=== PATIENT | male | born 1990 | race Two or more races ===

== ENCOUNTER 2019-04-25 16:34 | Inpatient (IN) | payer OTHER ==
[~2019-04-25] VITALS: Ht 180.3 cm; Wt 60.4 kg
--- NOTE | 2019-04-25 16:50 | NUR ---
PT SENT FROM [facility] VIA P/V AFTER PT WAS ABOUT TO BE ADMITTED BUT NOTIFIED THAT INSURANCE WAS NOT ACCEPTED AT [facility]. PT C/O ABD PAIN, N/V SINCE 5 AM TODAY WITH LABS INDICATING AT [facility]. TX WITH 1L NS/ZOFRAN/INSULIN BOLUS/INSULIN GTT. ARRIVES POV IN CARE OF PARENTS. APPEARS WELL, BREATHING UNLABORED, SKIN WARM/DRY. ONLY COMPLAINING OF NAUSEA FSBS 142, VSS PROVIDER TO BEDSIDE- MEDICATE GI UPSET/RE-ASSESS
[2019-04-25] MEDS ORDERED: HYDROcodone/APAP 5/325 TABLET PO ONE (17:00)
[2019-04-25] MEDS ORDERED: ONDANSETRON ODT 4 MG PO ONE (17:00)
[2019-04-25] MEDS ORDERED: MAALOX/HYOSCYAMINE/LIDOCAINE 45 ML BTL ONE (17:10)
[2019-04-25] MEDS ORDERED: ONDANSETRON ODT 4 MG ONE (17:10)
[2019-04-25] MEDS ORDERED: FAMOTIDINE 20 MG/2 ML ONE (17:11)
--- NOTE | 2019-04-25 17:30 | NUR ---
RIGHT FOREARM PIV PLACED FROM WHICH LABS INCLUDING 1 SET OF BLOOD CULTURES OBTAINED PATIENT THEN MEDICATED PER EMAR
[2019-04-25] MEDS ORDERED: PLEASE ENTER ALLERGIES MC SCH (18:00)
[2019-04-25] MEDS ORDERED: FAMOTIDINE 20 MG/2 ML IVPush ONE (18:00)
[2019-04-25] MEDS ORDERED: MAALOX/HYOSCYAMINE/LIDOCAINE 45 ML BTL PO ONE (18:00)
--- NOTE | 2019-04-25 18:07 | NUR ---
PATIENT REPORT "UPSET STOMACH COMPLETELY IMPROVED." VITALS REMAIN STABLE REVIEWED POC WITH PROVIDER: alex. PATIENT THEN UPDATED ON ESTIMATED POC
[2019-04-25] MEDS ORDERED: SODIUM CHLORIDE 0.9% 1,000 ML IV ONE (18:30)
--- NOTE | 2019-04-25 18:35 | NUR ---
WITH REASSESSMENT PATIENT REPORTS UPSET STOMACH REMAINS IMPROVED HOWEVER STILL REPORTING HEADACHE, GENERALIZED ACHES CLARIFIED POC/PROVIDER PLAN FOR ORDERS FOR LABS (SPECIMEN IN LAB AWAITING ORDERS TO RUN NEEDED)- PROVIDER CONSIDERING PLAN VITALS REMAIN UNCHANGED IVF ORDERS OBTAINED-NS ADMINISTERED AT 150ML/HR
[2019-04-25] MEDS ORDERED: MORPHINE SULFATE 4 MG/ML, 1ML ONE (19:04)
--- NOTE | 2019-04-25 19:07 | NUR ---
DR. MAYER AT BEDSIDE TO ADMIT VERBAL ORDERS RECEIVED FOE 2MG MORHINE FOR ACHES-MEDICATED PER EMAR
[2019-04-25] MEDS ORDERED: INSU100C5 SQ-INSULIN (19:10)
[2019-04-25] MEDS ORDERED: INSU100V8 SQ (19:10)
[2019-04-25 19:16] LABS: ANION GAP 14 mmol/L (5-15); CHLORIDE 109 mmol/L (98-107); CREATININE 0.83 mg/dL (0.7-1.3)
[2019-04-25] MEDS ORDERED: morphine SULFATE 10 MG/ML, 1ML IVPush ONE (19:30)
--- NOTE | 2019-04-25 19:36 | NUR ---
PATIENT TOLERATING STRING CHEESE/WATER. HOSPITALIST DECIDING ICU VS. FLOOR
[2019-04-25] MEDS ORDERED: D5%-0.45% NACL 1,000 ML IV SCH (19:38)
[2019-04-25] MEDS ORDERED: REGULAR INSULIN 62.5 UNITS in SODIUM CHLORIDE 0.9% 249.375 ML IV PRN ×2 (19:38→20:00)
[2019-04-25] MEDS ORDERED: LINA5TAB PO (19:40)
--- NOTE | 2019-04-25 19:51 | NUR ---
AWAITING HOSPITALIST CLARIFICATION PRIOR TO STARTING INSULIN/D5. ORDERS ABNORMAL. WILL ATTEMPT TO CONTACT PROVIDER
[2019-04-25] MEDS: ENOXAPARIN 40 MG/0.4 ML SQ SCH (20:00)
[2019-04-25] MEDS ORDERED: PROMETHAZINE 25 MG/ML, 1ML IM PRN (20:00)
[2019-04-25] MEDS ORDERED: D5%-0.45NACL+KCL 20MEQ 1,000 ML IV SCH (20:00)
[2019-04-25] MEDS ORDERED: DEXTROSE 4 GM TAB.CHEW PO PRN (20:00)
[2019-04-25] MEDS ORDERED: morphine SULFATE 10 MG/ML, 1ML IVPush PRN (20:00)
[2019-04-25] MEDS ORDERED: DEXTROSE 50%, 50ML SYRINGE IVPush PRN (20:00)
[2019-04-25] MEDS ORDERED: ONDANSETRON 2MG/ML, 2ML IVPush PRN (20:00)
[2019-04-25] MEDS ORDERED: GLUCAGON 1 MG IM PRN (20:00)
[2019-04-25] MEDS ORDERED: ACETAMINOPHEN 325 MG TABLET PO PRN (20:00)
[2019-04-25] MEDS ORDERED: FAMOTIDINE 20 MG TABLET PO SCH (21:00)
[2019-04-25 21:32] LABS: ANION GAP 16 mmol/L (5-15); CALCIUM 7.4 mg/dL (8.5-10.1); CHLORIDE 110 mmol/L (98-107); CREATININE 0.69 mg/dL (0.7-1.3)
[2019-04-25 21:52] VITALS: BP 102/47
[2019-04-25] MEDS: SODIUM CHLORIDE FLUSH 10ML SYR IVF SCH (21:52)
[2019-04-25 22:00] LABS: HEMOGLOBIN A1C 11.3 % (4.2-6.3)
[2019-04-25 22:23] LABS: ACETONE, SERUM Large (80mg/dL) mg/dL (Negative)
[2019-04-25 23:26] LABS: ANION GAP 12 mmol/L (5-15); CALCIUM 7.3 mg/dL (8.5-10.1); CHLORIDE 108 mmol/L (98-107); CREATININE 0.83 mg/dL (0.7-1.3)
[2019-04-26 01:36] LABS: ANION GAP 9 mmol/L (5-15); CALCIUM 7.4 mg/dL (8.5-10.1); CHLORIDE 109 mmol/L (98-107); CREATININE 0.87 mg/dL (0.7-1.3)
[2019-04-26] MEDS: INSULIN GLARGINE 100 UNITS/ML, PEN SQ-INSULIN SCH ×2 (07:42→20:53)
[2019-04-26] MEDS: INSULIN LISPRO 100 UNITS/ML, PEN SQ-INSULIN SCH ×4 (07:43→20:53)
[2019-04-26] MEDS: SODIUM CHLORIDE FLUSH 10ML SYR IVF SCH ×2 (07:49→20:55)
[2019-04-26 18:53] VITALS: BP 111/71
[2019-04-26] MEDS ORDERED: D5%-0.45% NACL 1,000 ML IV SCH ×2 (19:38)
[2019-04-26] MEDS: ENOXAPARIN 40 MG/0.4 ML SQ SCH (20:00)
[2019-04-27 00:57] VITALS: BP 109/69
[2019-04-27 04:42] LABS: ANION GAP 8 mmol/L (5-15); CALCIUM 8.5 mg/dL (8.5-10.1); CHLORIDE 106 mmol/L (98-107); CREATININE 0.78 mg/dL (0.7-1.3)
[2019-04-27 04:45] LABS: BASOPHILS # (AUTO) 0.04 x10^3/uL (0-0.1); BASOPHILS % (AUTO) 1 % (0-1); EOSINOPHILS # (AUTO) 0.18 x10^3/uL (0-0.4); EOSINOPHILS % (AUTO) 3 % (1-7); LYMPHOCYTES # (AUTO) 1.85 x10^3/uL (1-3.4); LYMPHOCYTES % (AUTO) 33 % (22-44); MD NO; MEAN CORPUSCULAR HGB CONC 33.3 g/dL (33.2-36.2); MEAN CORPUSCULAR VOLUME 96.3 fL (81-97); MEAN PLATELET VOLUME 7.8 fL (7.4-10.4); MONOCYTES # (AUTO) 0.46 x10^3/uL (0.2-0.8); MONOCYTES % (AUTO) 8 % (2-9); NEUTROPHILS # (AUTO) 3.05 x10^3/uL (1.8-6.8); NEUTROPHILS % (AUTO) 55 % (42-75); PLATELET COUNT 273 x10^3/uL (130-400); RED BLOOD COUNT 4.81 x10^6/uL (4.38-5.82)
[2019-04-27] MEDS: INSULIN LISPRO 100 UNITS/ML, PEN SQ-INSULIN SCH ×2 (07:00→11:04)
[2019-04-27 07:09] VITALS: BP 107/72
[2019-04-27] MEDS: INSULIN GLARGINE 100 UNITS/ML, PEN SQ-INSULIN SCH (07:29)
[2019-04-27] MEDS: SODIUM CHLORIDE FLUSH 10ML SYR IVF SCH (09:00)
== END 2019-04-27 13:25 | disposition home or self-care (01) | DRG 639 ==
LOC: ED 19:37 → CCU 20:21 → 3NW 04-26 10:05 → DCLOUNGE 04-27 13:17
PROVIDERS: ADMIT Family Medicine; ATTEND Family Medicine
DX: E10.10 Type 1 diabetes mellitus with ketoacidosis without coma (principal); F12.10 Cannabis abuse, uncomplicated; Z71.6 Tobacco abuse counseling; Z79.4 Long term (current) use of insulin; Z72.0 Tobacco use; Z86.39 Personal history of other endocrine, nutritional and metabolic disease
CPT/HCPCS: 36415; 99285; J3490; 80048; 82010; 82947; 82962; 83036; 83735; 84100; 85025; 87081; 96374; 96375; G0378; J1815; Q0162; J2270; J7030; J7050

== ENCOUNTER 2020-01-13 05:56 | Inpatient (IN) | payer OTHER ==
[~2020-01-13] VITALS: Ht 180.3 cm; Wt 59.6 kg
[~2020-01-13 05:56] MED LIST: INSU100C5 SQ-INSULIN; INSU100V8 SQ; LINA5TAB PO
[2020-01-13] MEDS ORDERED: SODIUM CHLORIDE FLUSH 10ML SYR IVF ONE (06:30)
[2020-01-13] MEDS ORDERED: SODIUM CHLORIDE 0.9% 1,000ML IVBOLUS ONE (06:30)
[2020-01-13] MEDS ORDERED: ONDANSETRON 2MG/ML, 2ML IVPush ONE (06:30)
[2020-01-13] MEDS ORDERED: ONDANSETRON 2MG/ML, 2ML ONE (06:32)
--- NOTE | 2020-01-13 06:39 | NUR ---
PT HERE FOR C/O N/V/D AND HIGH FSBS 400. 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 VSS.
[2020-01-13 06:43] LABS: MEAN CORPUSCULAR HEMOGLOBIN 31.3 pg (27.5-34.5); MEAN CORPUSCULAR HGB CONC 33.1 g/dL (33.2-36.2); MEAN CORPUSCULAR VOLUME 94.5 fL (81-97); MEAN PLATELET VOLUME 8.5 fL (7.4-10.4); PLATELET COUNT 297 x10^3/uL (130-400); RED BLOOD COUNT 5.41 x10^6/uL (4.38-5.82); RED CELL DISTRIBUTION WIDTH 13.2 % (9.4-14.8)
[2020-01-13] MEDS ORDERED: MORPHINE SULFATE 4 MG/ML, 1ML ONE (06:49)
--- NOTE | 2020-01-13 06:49 | NUR ---
PT REPORTS ABD PAIN, UPDATED ERP.
[2020-01-13 06:55] LABS: ALANINE AMINOTRANSFERASE 44 U/L (12-78); ALBUMIN 4.6 g/dL (3.4-5.0); ANION GAP 17 mmol/L (5-15); CALCIUM 10.4 mg/dL (8.5-10.1); CHLORIDE 101 mmol/L (98-107); CREATININE 1.53 mg/dL (0.7-1.3)
[2020-01-13 06:57] LABS: ALKALINE PHOSPHATASE 107 U/L (45-117); TOTAL PROTEIN 9.3 g/dL (6.4-8.2)
[2020-01-13] MEDS ORDERED: MORPHINE SULFATE 4 MG/ML, 1ML IVPush ONE (07:00)
--- NOTE | 2020-01-13 07:03 | NUR ---
REPORT GIVEN TO ROSALIA SAUCEDA.
--- NOTE | 2020-01-13 07:04 | NUR ---
RECEIVED REPORT FROM KOMAL RED. PT SITTING IN BED, NO SIGNS OF DISTRESS, PT EDUCATED AGAIN ABOUT UA, PT ATTEMPTING TO URINATE.
--- NOTE | 2020-01-13 07:04 | NUR ---
LATE NOTE: THIS TECH TRIAGED/ROOMED PT & DID EKG
[2020-01-13 07:16] LABS: BASOPHILS # (AUTO) 0.01 x10^3/uL (0-0.1); BASOPHILS % (AUTO) 0 % (0-1); EOSINOPHILS % (AUTO) 0 % (1-7); LYMPHOCYTES # (AUTO) 1.11 x10^3/uL (1-3.4); LYMPHOCYTES % (AUTO) 6 % (22-44); MD SCAN; MONOCYTES # (AUTO) 0.98 x10^3/uL (0.2-0.8); MONOCYTES % (AUTO) 5 % (2-9); NEUTROPHILS # (AUTO) 17.93 x10^3/uL (1.8-6.8); NEUTROPHILS % (AUTO) 90 % (42-75)
--- NOTE | 2020-01-13 07:17 | NUR ---
PT REPORTED TARRY BLACK STOOLS, ERP AWARE.
[2020-01-13] MEDS ORDERED: FAMOTIDINE 20 MG/2 ML ONE (07:29)
[2020-01-13] MEDS ORDERED: PANTOPRAZOLE 40 MG IV IVPush ONE (07:30)
[2020-01-13] MEDS ORDERED: FAMOTIDINE 20 MG/2 ML IVPush ONE (07:30)
[2020-01-13] MEDS ORDERED: SODIUM CHLORIDE 0.9% 1,000 ML IV ONE (07:30)
[2020-01-13] MEDS ORDERED: AZITHROMYCIN 500 MG in SODIUM CHLORIDE 0.9% 250 ML IV ONE (07:30)
[2020-01-13 07:45] LABS: ACETONE, SERUM Large (80mg/dL) (Negative)
--- NOTE | 2020-01-13 08:11 | NUR ---
PT MEDICATED TO MAR, VSS, NO SIGNS OF DISTRESS, WILL CONTINUE TO MONITOR.
--- NOTE | 2020-01-13 08:15 | NUR ---
HOSPITALIST TO BEDSIDE.
--- NOTE | 2020-01-13 08:19 | NUR ---
LATE ENTRY, SKIN ON NECK NOTED TO BE FLUSHED BEFORE ANY MEDS WERE ADMINISTERED BY THIS RN. PT DENIES ANY RELATED COMPLAINTS.
[2020-01-13] MEDS ORDERED: INSULIN LISPRO 100 UNIT/ML, 3ML VIAL SQ-INSULIN ONE (08:30)
[2020-01-13] MEDS ORDERED: INSULIN LISPRO 100 UNITS/ML, PEN SQ-INSULIN ONE (09:00)
--- NOTE | 2020-01-13 09:15 | NUR ---
PT LAYING IN BED, EYES CLOSED, RESPIRATIONS EVEN AND UNLABORED, NO SIGNS OF DISTRESS. WILL CONTINUE TO MONITOR.
[2020-01-13] MEDS ORDERED: DEXTROSE 4 GM TAB.CHEW PO PRN (09:30)
[2020-01-13] MEDS ORDERED: GLUCAGON 1 MG IM PRN (09:30)
[2020-01-13] MEDS ORDERED: DEXTROSE 50%, 50ML SYRINGE IVPush PRN (09:30)
[2020-01-13] MEDS ORDERED: INSULIN NPH HUMAN 100 UNIT/ML, 3ML VIAL SQ-INSULIN SCH ×3 (09:30→11:00)
[2020-01-13] MEDS ORDERED: GABAPENTIN 300 MG CAPSULE PO PRN (09:30)
[2020-01-13] MEDS ORDERED: BACLOFEN 10 MG TABLET PO PRN (09:30)
[2020-01-13] MEDS ORDERED: ACETAMINOPHEN 325 MG TABLET PO PRN (09:30)
[2020-01-13] MEDS ORDERED: ONDANSETRON ODT 4 MG PO PRN (09:30)
--- NOTE | 2020-01-13 10:13 | NUR ---
REPORT GIVEN TO KOMAL ROSENTHAL. PT LAYING IN BED, NO SIGN OF DISTRESS.
--- NOTE | 2020-01-13 10:28 | NUR ---
10 UNITS LISPRO ORDERED FOR BLOOD GLUCOSE OF 409, FSBG PRIOR TO ADMIN 257. MED HELD UNTIL MD COULD BE CONTACTED.
--- NOTE | 2020-01-13 10:55 | NUR ---
RN CALLED [facility] TO UPDATE HIM ON REASON WHY 10 UNITS LISPRO WAS NOT ADMINISTERED FOR DROP IN BLOOD GLUCOSE FROM 409 TO 257. [facility] STATED IT WAS "OKAY" ASKED WHO RECEIVING RN IS, PROVIDED NAME.
[2020-01-13 11:00] VITALS: BP 128/86
[2020-01-13] MEDS: NS + 20MEQ KCL 1,000 ML IV SCH ×2 (11:50→19:27)
[2020-01-13] MEDS: INSULIN LISPRO 100 UNITS/ML, PEN SQ-INSULIN SCH ×4 (11:51→21:00)
[2020-01-13] MEDS: CEFTRIAXONE PMX 1GM/50ML 50 ML IV SCH (11:51)
[2020-01-13] MEDS ORDERED: INSULIN NPH HUMAN 100 UNIT/ML, 3ML VIAL SQ-INSULIN ONE (12:00)
[2020-01-13 13:02] LABS: MICROSCOPIC NOT IND
[2020-01-13 13:04] LABS: CULTURE INDICATED? NO
[2020-01-13 13:24] LABS: RAPID INFLUENZA A Negative (Negative); RAPID INFLUENZA B Negative (Negative)
[2020-01-13 16:09] LABS: ANION GAP 9 mmol/L (5-15); CALCIUM 8.4 mg/dL (8.5-10.1); CHLORIDE 107 mmol/L (98-107)
[2020-01-13 17:13] VITALS: BP 125/65
[2020-01-13 19:10] VITALS: BP 116/78
[2020-01-13] MEDS: SODIUM CHLORIDE FLUSH 10ML SYR IVF SCH (21:00)
[2020-01-13] MEDS ORDERED: INSULIN GLARGINE 100 UNITS/ML, PEN SQ-INSULIN SCH (21:00)
[2020-01-13] MEDS: ONDANSETRON 2MG/ML, 2ML IVPush PRN (21:29)
[2020-01-13] MEDS: PANTOPRAZOLE 40 MG IV IVPush SCH (21:29)
[2020-01-13] MEDS: INSULIN GLARGINE 100 UNITS/ML, PEN SQ-INSULIN SCH (21:30)
[2020-01-13] MEDS: morphine SULFATE 10 MG/ML, 1ML IVPush PRN (21:30)
[2020-01-14 00:47] VITALS: BP 104/52
[2020-01-14] MEDS: NS + 20MEQ KCL 1,000 ML IV SCH ×2 (02:33→08:28)
[2020-01-14 05:38] LABS: BASOPHILS # (AUTO) 0.03 x10^3/uL (0-0.1); BASOPHILS % (AUTO) 0 % (0-1); EOSINOPHILS # (AUTO) 0.04 x10^3/uL (0-0.4); EOSINOPHILS % (AUTO) 0 % (1-7); LYMPHOCYTES # (AUTO) 1.28 x10^3/uL (1-3.4); LYMPHOCYTES % (AUTO) 8 % (22-44); MD NO; MEAN CORPUSCULAR HEMOGLOBIN 31.3 pg (27.5-34.5); MEAN CORPUSCULAR HGB CONC 33.4 g/dL (33.2-36.2); MEAN CORPUSCULAR VOLUME 93.7 fL (81-97); MEAN PLATELET VOLUME 8.1 fL (7.4-10.4); MONOCYTES # (AUTO) 1.15 x10^3/uL (0.2-0.8); MONOCYTES % (AUTO) 7 % (2-9); NEUTROPHILS # (AUTO) 13.65 x10^3/uL (1.8-6.8); NEUTROPHILS % (AUTO) 85 % (42-75); PLATELET COUNT 231 x10^3/uL (130-400); RED BLOOD COUNT 4.18 x10^6/uL (4.38-5.82)
[2020-01-14 05:48] LABS: ANION GAP 5 mmol/L (5-15); CALCIUM 8.1 mg/dL (8.5-10.1); CHLORIDE 108 mmol/L (98-107)
[2020-01-14 05:51] LABS: CREATININE 0.61 mg/dL (0.7-1.3)
[2020-01-14] MEDS: AZITHROMYCIN 500 MG in SODIUM CHLORIDE 0.9% 250 ML IV SCH (07:57)
[2020-01-14] MEDS: PANTOPRAZOLE 40 MG IV IVPush SCH (07:57)
[2020-01-14] MEDS: SODIUM CHLORIDE FLUSH 10ML SYR IVF SCH ×2 (07:57→20:09)
[2020-01-14] MEDS: INSULIN LISPRO 100 UNITS/ML, PEN SQ-INSULIN SCH ×5 (08:17→20:08)
[2020-01-14] MEDS: morphine SULFATE 10 MG/ML, 1ML IVPush PRN ×3 (08:29→20:08)
[2020-01-14 08:40] VITALS: BP 128/88
[2020-01-14] MEDS: KETOROLAC 30 MG/1 ML IVPush PRN ×2 (09:04→14:31)
[2020-01-14] MEDS: CEFTRIAXONE PMX 1GM/50ML 50 ML IV SCH (11:45)
[2020-01-14 12:48] VITALS: BP 112/71
[2020-01-14] MEDS: ONDANSETRON 2MG/ML, 2ML IVPush PRN (14:31)
[2020-01-14 16:22] LABS: OCCULT BLOOD NEGATIVE (NEGATIVE)
[2020-01-14 16:49] LABS: CLOSTRIDIUM DIFFICILE ANTIGEN NEGATIVE; CLOSTRIDIUM DIFFICILE TOXIN NEGATIVE (Negative)
[2020-01-14 18:46] VITALS: BP 126/79
[2020-01-14] MEDS: INSULIN GLARGINE 100 UNITS/ML, PEN SQ-INSULIN SCH (20:07)
[2020-01-14] MEDS: PROMETHAZINE 25 MG/ML, 1ML IM PRN (20:09)
[2020-01-15 00:51] VITALS: BP 125/79
[2020-01-15] MEDS: KETOROLAC 30 MG/1 ML IVPush PRN ×4 (02:21→22:16)
[2020-01-15] MEDS: NS + 20MEQ KCL 1,000 ML IV SCH ×2 (06:08→17:50)
[2020-01-15] MEDS: INSULIN LISPRO 100 UNITS/ML, PEN SQ-INSULIN SCH ×4 (07:33→22:22)
[2020-01-15] MEDS: SODIUM CHLORIDE FLUSH 10ML SYR IVF SCH ×2 (08:11→22:16)
[2020-01-15] MEDS: AZITHROMYCIN 500 MG in SODIUM CHLORIDE 0.9% 250 ML IV SCH (08:15)
[2020-01-15 08:30] VITALS: BP 128/78
[2020-01-15 09:27] LABS: MEAN CORPUSCULAR HEMOGLOBIN 31.6 pg (27.5-34.5); MEAN CORPUSCULAR HGB CONC 33.3 g/dL (33.2-36.2); MEAN CORPUSCULAR VOLUME 94.8 fL (81-97); MEAN PLATELET VOLUME 7.8 fL (7.4-10.4); PLATELET COUNT 226 x10^3/uL (130-400); RED BLOOD COUNT 4.13 x10^6/uL (4.38-5.82); RED CELL DISTRIBUTION WIDTH 12.8 % (9.4-14.8)
[2020-01-15 09:35] LABS: ANION GAP 5 mmol/L (5-15); CHLORIDE 107 mmol/L (98-107); CREATININE 0.51 mg/dL (0.7-1.3)
[2020-01-15 10:23] LABS: BASOPHILS # (AUTO) 0.04 x10^3/uL (0-0.1); BASOPHILS % (AUTO) 0 % (0-1); EOSINOPHILS # (AUTO) 0.02 x10^3/uL (0-0.4); EOSINOPHILS % (AUTO) 0 % (1-7); LYMPHOCYTES # (AUTO) 0.93 x10^3/uL (1-3.4); LYMPHOCYTES % (AUTO) 8 % (22-44); MD SCAN; MONOCYTES # (AUTO) 0.89 x10^3/uL (0.2-0.8); MONOCYTES % (AUTO) 8 % (2-9); NEUTROPHILS # (AUTO) 9.71 x10^3/uL (1.8-6.8); NEUTROPHILS % (AUTO) 84 % (42-75)
[2020-01-15] MEDS: CEFTRIAXONE PMX 1GM/50ML 50 ML IV SCH (11:51)
[2020-01-15] MEDS: PROMETHAZINE 25 MG/ML, 1ML IM PRN (12:53)
[2020-01-15 13:55] VITALS: BP 134/84
[2020-01-15 19:03] VITALS: BP 125/85
[2020-01-15] MEDS: CALCIUM CARBONATE 500 MG TAB.CHEW PO PRN (22:16)
[2020-01-15] MEDS: INSULIN GLARGINE 100 UNITS/ML, PEN SQ-INSULIN SCH (22:20)
[2020-01-16] MEDS: NS + 20MEQ KCL 1,000 ML IV SCH (03:33)
[2020-01-16 03:42] VITALS: BP 111/73
[2020-01-16] MEDS: CALCIUM CARBONATE 500 MG TAB.CHEW PO PRN ×2 (05:49→12:09)
[2020-01-16] MEDS: KETOROLAC 30 MG/1 ML IVPush PRN ×2 (05:49→16:38)
[2020-01-16 06:52] LABS: BASOPHILS # (AUTO) 0.02 x10^3/uL (0-0.1); BASOPHILS % (AUTO) 0 % (0-1); EOSINOPHILS # (AUTO) 0.04 x10^3/uL (0-0.4); EOSINOPHILS % (AUTO) 1 % (1-7); LYMPHOCYTES # (AUTO) 1.02 x10^3/uL (1-3.4); LYMPHOCYTES % (AUTO) 11 % (22-44); MD NO; MEAN CORPUSCULAR HEMOGLOBIN 31.3 pg (27.5-34.5); MEAN CORPUSCULAR HGB CONC 33.4 g/dL (33.2-36.2); MEAN CORPUSCULAR VOLUME 93.8 fL (81-97); MEAN PLATELET VOLUME 8.7 fL (7.4-10.4); MONOCYTES # (AUTO) 0.82 x10^3/uL (0.2-0.8); MONOCYTES % (AUTO) 9 % (2-9); NEUTROPHILS # (AUTO) 7.21 x10^3/uL (1.8-6.8); NEUTROPHILS % (AUTO) 79 % (42-75); PLATELET COUNT 246 x10^3/uL (130-400); RED CELL DISTRIBUTION WIDTH 12.9 % (9.4-14.8)
[2020-01-16 06:59] LABS: ANION GAP 7 mmol/L (5-15); CALCIUM 8.6 mg/dL (8.5-10.1); CHLORIDE 107 mmol/L (98-107); CREATININE 0.54 mg/dL (0.7-1.3)
[2020-01-16] MEDS: INSULIN LISPRO 100 UNITS/ML, PEN SQ-INSULIN SCH ×4 (07:32→20:05)
[2020-01-16] MEDS: SODIUM CHLORIDE FLUSH 10ML SYR IVF SCH ×2 (07:39→21:00)
[2020-01-16] MEDS ORDERED: POTASSIUM CHLORIDE 20 MEQ TAB.ER.PRT PO ONE (08:00)
[2020-01-16 08:29] VITALS: BP 131/83
[2020-01-16] MEDS: AZITHROMYCIN 500 MG in SODIUM CHLORIDE 0.9% 250 ML IV SCH (08:32)
[2020-01-16] MEDS: PROMETHAZINE 25 MG/ML, 1ML IM PRN (09:30)
[2020-01-16] MEDS: CEFTRIAXONE PMX 1GM/50ML 50 ML IV SCH (12:10)
[2020-01-16 15:32] VITALS: BP 125/81
[2020-01-16 19:55] VITALS: BP 132/91
[2020-01-16] MEDS: INSULIN GLARGINE 100 UNITS/ML, PEN SQ-INSULIN SCH (20:05)
[2020-01-17] MEDS: KETOROLAC 30 MG/1 ML IVPush PRN ×2 (00:30→08:26)
[2020-01-17 02:10] VITALS: BP 112/72
[2020-01-17 06:49] LABS: ANION GAP 7 mmol/L (5-15); BASOPHILS # (AUTO) 0.03 x10^3/uL (0-0.1); BASOPHILS % (AUTO) 0 % (0-1); CALCIUM 9.1 mg/dL (8.5-10.1); CHLORIDE 104 mmol/L (98-107); CREATININE 0.73 mg/dL (0.7-1.3); EOSINOPHILS # (AUTO) 0.15 x10^3/uL (0-0.4); EOSINOPHILS % (AUTO) 2 % (1-7); LYMPHOCYTES # (AUTO) 1.48 x10^3/uL (1-3.4); LYMPHOCYTES % (AUTO) 16 % (22-44); MD NO; MEAN CORPUSCULAR HEMOGLOBIN 31.5 pg (27.5-34.5); MEAN CORPUSCULAR HGB CONC 33.6 g/dL (33.2-36.2); MEAN CORPUSCULAR VOLUME 93.8 fL (81-97); MEAN PLATELET VOLUME 8.4 fL (7.4-10.4); MONOCYTES # (AUTO) 0.85 x10^3/uL (0.2-0.8); MONOCYTES % (AUTO) 9 % (2-9); NEUTROPHILS # (AUTO) 6.71 x10^3/uL (1.8-6.8); NEUTROPHILS % (AUTO) 73 % (42-75); PLATELET COUNT 309 x10^3/uL (130-400); RED CELL DISTRIBUTION WIDTH 12.8 % (9.4-14.8)
[2020-01-17 07:44] VITALS: BP 121/82
[2020-01-17] MEDS: INSULIN LISPRO 100 UNITS/ML, PEN SQ-INSULIN SCH ×2 (08:26→11:43)
[2020-01-17] MEDS ORDERED: ACETAMINOPHEN 325 MG TABLET PO PRN (08:30)
[2020-01-17] MEDS ORDERED: AMOXICILLIN 500 MG CAPSULE PO SCH (09:00)
[2020-01-17] MEDS ORDERED: INSU100V8 SQ (10:09)
[2020-01-17] MEDS ORDERED: AMOX-291 PO (10:09)
== END 2020-01-17 11:47 | disposition home or self-care (01) | DRG 871 ==
LOC: ED 06:20 → SUATTDRO 08:04 → EDIP 08:11 → 3E 10:43 → 4NW 01-16 10:47 → 3N 01-16 16:49
PROVIDERS: ADMIT Hospitalist; ATTEND Internal Medicine
DX: A41.9 Sepsis, unspecified organism (principal); E10.10 Type 1 diabetes mellitus with ketoacidosis without coma; J18.9 Pneumonia, unspecified organism; N17.0 Acute kidney failure with tubular necrosis; D64.9 Anemia, unspecified; E83.52 Hypercalcemia; E86.0 Dehydration; F17.200 Nicotine dependence, unspecified, uncomplicated; J02.0 Streptococcal pharyngitis
CPT/HCPCS: 36415; 74018; 84145; 87400; 87486; 87581; 87633; 87798; 96361; 96374; 99291; J3490; 71045; 80048; 80053; 81003; 82010; 82272; 82728; 82800; 82962; 83036; 83605; 83615; 83735; 85014; 85018; 85025; 87040; 87081; 87324; 87880; 93005; G0378; J0456; J0696; J1815; J1885; J2405; J2550; J3480; C9113; J2270; J7030; J7050; U0001

== ENCOUNTER 2020-05-11 06:52 | Inpatient (IN) | payer OTHER ==
[~2020-05-11] VITALS: Ht 180.3 cm; Wt 61.6 kg
[~2020-05-11 06:52] MED LIST changes: +AMOX-291 PO
[2020-05-11] MEDS ORDERED: INSULIN REGULAR 100 UNITS/ML, 3ML VIAL SQ-INSULIN ONE (07:30)
[2020-05-11] MEDS ORDERED: SODIUM CHLORIDE 0.9% 1,000ML IVBOLUS ONE (07:30)
[2020-05-11] MEDS ORDERED: ONDANSETRON 2MG/ML, 2ML IVPush ONE (07:30)
[2020-05-11 07:31] LABS: PH, VENOUS 7.337 pH (7.320-7.420)
[2020-05-11] MEDS ORDERED: INSULIN SINGLE DOSE, ER ONE (07:36)
[2020-05-11 07:40] LABS: BASOPHILS # (AUTO) 0.03 x10^3/uL (0-0.1); BASOPHILS % (AUTO) 1 % (0-1); EOSINOPHILS # (AUTO) 0.12 x10^3/uL (0-0.4); EOSINOPHILS % (AUTO) 2 % (1-7); LYMPHOCYTES # (AUTO) 1.48 x10^3/uL (1-3.4); LYMPHOCYTES % (AUTO) 21 % (22-44); MD NO; MEAN CORPUSCULAR HEMOGLOBIN 30.5 pg (27.5-34.5); MEAN CORPUSCULAR HGB CONC 32.4 g/dL (33.2-36.2); MEAN CORPUSCULAR VOLUME 94.1 fL (81-97); MEAN PLATELET VOLUME 8.2 fL (7.4-10.4); MONOCYTES # (AUTO) 0.36 x10^3/uL (0.2-0.8); MONOCYTES % (AUTO) 5 % (2-9); NEUTROPHILS # (AUTO) 4.97 x10^3/uL (1.8-6.8); NEUTROPHILS % (AUTO) 71 % (42-75); PLATELET COUNT 272 x10^3/uL (130-400); RED BLOOD COUNT 5.61 x10^6/uL (4.38-5.82); RED CELL DISTRIBUTION WIDTH 12.8 % (9.4-14.8)
[2020-05-11] MEDS ORDERED: ONDANSETRON 2MG/ML, 2ML ONE (07:47)
[2020-05-11 07:49] LABS: ACETONE, SERUM Large (80mg/dL) (Negative); ALANINE AMINOTRANSFERASE 29 U/L (12-78); ALBUMIN 4.8 g/dL (3.4-5.0); ANION GAP 14 mmol/L (5-15); CALCIUM 9.6 mg/dL (8.5-10.1); CHLORIDE 100 mmol/L (98-107); CREATININE 1.16 mg/dL (0.7-1.3)
--- NOTE | 2020-05-11 07:49 | NUR ---
PT STATES DIARRHEA WITH ACCOMPANYING ABDOMINAL PAIN FOR 3 DAYS. SOB DEVELOPED 4 HOURS AGO. UOB TO COMMODE WITHOUT ASSISTANCE. XRAY THEN COMPLETED AND THEN MEDICATED WITH INSULIN SQ ORDERED. IV TO BE ESTABLISHED WITH FLUID BOLUS AND NAUSEA TO BE GIVEN.
[2020-05-11 07:51] LABS: ALKALINE PHOSPHATASE 87 U/L (45-117); BILIRUBIN,TOTAL 0.9 mg/dL (0.2-1.0)
--- NOTE | 2020-05-11 08:05 | NUR ---
dr talbert talking with pt about labs and questioning pt about symptoms
[2020-05-11] MEDS ORDERED: INSU100V8 SQ (08:23)
[2020-05-11] MEDS ORDERED: LACTATED RINGERS 1,000 ML IVBOLUS ONE (08:30)
[2020-05-11] MEDS ORDERED: hydrALAzine 20 MG/ML, 1ML IVPush PRN (09:30)
[2020-05-11] MEDS ORDERED: LORazepam 1MG TABLET PO PRN (09:30)
[2020-05-11] MEDS ORDERED: CIPROFLOXACIN 500 MG TABLET PO SCH (09:30)
[2020-05-11] MEDS ORDERED: ZOLPIDEM 5MG TABLET PO PRN (09:30)
[2020-05-11] MEDS ORDERED: ACETAMINOPHEN 325 MG TABLET PO PRN (09:30)
[2020-05-11] MEDS ORDERED: ONDANSETRON 2MG/ML, 2ML IVPush PRN (09:30)
[2020-05-11] MEDS ORDERED: DIPHENOXYLATE/ATROPINE TABLET PO PRN (09:30)
[2020-05-11] MEDS: INSULIN GLARGINE 100 UNITS/ML, PEN SQ-INSULIN SCH (09:46)
--- NOTE | 2020-05-11 09:47 | NUR ---
10:00 AM LANTUS NOT GIVEN PT HAD 10 UNITS OF REGULAR INSULIN GIVEN AT 0740
[2020-05-11] MEDS ORDERED: ENOXAPARIN 40 MG/0.4 ML ONE (09:54)
[2020-05-11] MEDS ORDERED: NICOTINE 14MG/24 HR PATCH.TD24 ONE (09:54)
[2020-05-11] MEDS ORDERED: FAMOTIDINE 20 MG TABLET ONE (09:54)
[2020-05-11] MEDS ORDERED: CIPROFLOXACIN 500 MG TABLET ONE (09:55)
[2020-05-11] MEDS: FAMOTIDINE 20 MG TABLET PO SCH ×2 (09:59→21:14)
[2020-05-11] MEDS: SODIUM CHLORIDE 0.9% 1,000 ML IV SCH ×2 (09:59→13:04)
[2020-05-11] MEDS: ENOXAPARIN 40 MG/0.4 ML SQ SCH (10:00)
[2020-05-11] MEDS: NICOTINE 14MG/24 HR PATCH.TD24 TD SCH (10:01)
--- NOTE | 2020-05-11 10:17 | NUR ---
REPORT TO MAIK SAUCEDA. PT TO BE TRANSPORTED TO FLOOR.
[2020-05-11 10:52] VITALS: BP 118/68
[2020-05-11 10:59] LABS: CLOSTRIDIUM DIFFICILE ANTIGEN NEGATIVE; CLOSTRIDIUM DIFFICILE TOXIN NEGATIVE (Negative)
[2020-05-11 11:21] LABS: CRYPTOSPORIDIUM ANTIGEN Negative (Negative)
[2020-05-11] MEDS: INSULIN LISPRO 100 UNITS/ML, PEN SQ-INSULIN SCH ×3 (11:53→19:35)
[2020-05-11] MEDS: ONDANSETRON ODT 4 MG PO PRN ×2 (11:55→19:41)
[2020-05-11 12:05] VITALS: BP 118/68
[2020-05-11 13:58] LABS: MICROSCOPIC NOT IND
[2020-05-11 14:31] LABS: ANION GAP 8 mmol/L (5-15); CALCIUM 7.5 mg/dL (8.5-10.1); CHLORIDE 108 mmol/L (98-107); CREATININE 0.76 mg/dL (0.7-1.3)
[2020-05-11 18:42] VITALS: BP 127/79
[2020-05-11 19:25] LABS: ANION GAP 11 mmol/L (5-15); CALCIUM 7.7 mg/dL (8.5-10.1); CHLORIDE 104 mmol/L (98-107); CREATININE 0.98 mg/dL (0.7-1.3)
[2020-05-11] MEDS ORDERED: INSULIN GLARGINE 100 UNITS/ML, PEN SQ-INSULIN SCH (21:00)
[2020-05-11] MEDS: CIPROFLOXACIN 250 MG TABLET PO SCH (21:15)
[2020-05-12 00:05] VITALS: BP 118/65
[2020-05-12 01:21] LABS: ANION GAP 5 mmol/L (5-15); CALCIUM 7.8 mg/dL (8.5-10.1); CHLORIDE 108 mmol/L (98-107); CREATININE 0.83 mg/dL (0.7-1.3)
[2020-05-12 04:50] LABS: ALBUMIN 3.4 g/dL (3.4-5.0); ANION GAP 6 mmol/L (5-15); CALCIUM 8.2 mg/dL (8.5-10.1); CHLORIDE 109 mmol/L (98-107)
[2020-05-12 04:55] LABS: BASOPHILS # (AUTO) 0.04 x10^3/uL (0-0.1); BASOPHILS % (AUTO) 1 % (0-1); EOSINOPHILS # (AUTO) 0.19 x10^3/uL (0-0.4); EOSINOPHILS % (AUTO) 3 % (1-7); LYMPHOCYTES % (AUTO) 33 % (22-44); MD NO; MEAN CORPUSCULAR HEMOGLOBIN 30.7 pg (27.5-34.5); MEAN CORPUSCULAR HGB CONC 32.7 g/dL (33.2-36.2); MEAN CORPUSCULAR VOLUME 93.7 fL (81-97); MEAN PLATELET VOLUME 7.9 fL (7.4-10.4); MONOCYTES # (AUTO) 0.44 x10^3/uL (0.2-0.8); MONOCYTES % (AUTO) 8 % (2-9); NEUTROPHILS # (AUTO) 3.15 x10^3/uL (1.8-6.8); NEUTROPHILS % (AUTO) 55 % (42-75); PLATELET COUNT 210 x10^3/uL (130-400); RED BLOOD COUNT 4.49 x10^6/uL (4.38-5.82); RED CELL DISTRIBUTION WIDTH 12.7 % (9.4-14.8)
[2020-05-12 05:01] LABS: ALANINE AMINOTRANSFERASE 21 U/L (12-78); ALKALINE PHOSPHATASE 52 U/L (45-117); CHOL/HDL RATIO 2.3; CHOLESTEROL, TOTAL 105 mg/dL (140-239); CREATININE 0.64 mg/dL (0.7-1.3); HDL CHOL % 44 % (26-37); HDL CHOLESTEROL (DIRECT) 46 mg/dL (40-60); LDL CHOLESTEROL,CALCULATED 43 mg/dL (54-169); LDL/HDL RATIO 0.9 (0.5-3.0); TOTAL PROTEIN 5.8 g/dL (6.4-8.2); TRIGLYCERIDES 81 mg/dL (50-200); VLDL CHOLESTEROL 16 mg/dL (0-25)
[2020-05-12 07:29] VITALS: BP 111/72
[2020-05-12] MEDS: FAMOTIDINE 20 MG TABLET PO SCH ×2 (08:06→20:18)
[2020-05-12] MEDS: ENOXAPARIN 40 MG/0.4 ML SQ SCH (08:07)
[2020-05-12] MEDS: SODIUM CHLORIDE 0.9% 1,000 ML IV SCH ×2 (08:07→16:12)
[2020-05-12] MEDS: CIPROFLOXACIN 250 MG TABLET PO SCH ×2 (08:07→20:18)
[2020-05-12] MEDS: NICOTINE 14MG/24 HR PATCH.TD24 TD SCH (08:07)
[2020-05-12] MEDS: INSULIN LISPRO 100 UNITS/ML, PEN SQ-INSULIN SCH ×4 (08:08→20:18)
[2020-05-12] MEDS: INSULIN GLARGINE 100 UNITS/ML, PEN SQ-INSULIN SCH (08:08)
[2020-05-12 15:34] VITALS: BP 124/79
[2020-05-12 20:00] VITALS: BP 124/86
[2020-05-12] MEDS ORDERED: INSULIN GLARGINE 100 UNITS/ML, PEN SQ-INSULIN SCH (21:00)
[2020-05-13] VITALS: BP 112/65
[2020-05-13 05:48] LABS: ANION GAP 6 mmol/L (5-15); CALCIUM 7.9 mg/dL (8.5-10.1); CHLORIDE 108 mmol/L (98-107); CREATININE 0.68 mg/dL (0.7-1.3)
[2020-05-13 05:49] LABS: BASOPHILS # (AUTO) 0.05 x10^3/uL (0-0.1); BASOPHILS % (AUTO) 1 % (0-1); EOSINOPHILS # (AUTO) 0.18 x10^3/uL (0-0.4); EOSINOPHILS % (AUTO) 3 % (1-7); LYMPHOCYTES # (AUTO) 2.11 x10^3/uL (1-3.4); LYMPHOCYTES % (AUTO) 35 % (22-44); MD NO; MEAN CORPUSCULAR HGB CONC 32.9 g/dL (33.2-36.2); MEAN CORPUSCULAR VOLUME 93.9 fL (81-97); MEAN PLATELET VOLUME 8.6 fL (7.4-10.4); MONOCYTES # (AUTO) 0.45 x10^3/uL (0.2-0.8); MONOCYTES % (AUTO) 7 % (2-9); NEUTROPHILS # (AUTO) 3.31 x10^3/uL (1.8-6.8); NEUTROPHILS % (AUTO) 54 % (42-75); PLATELET COUNT 204 x10^3/uL (130-400); RED BLOOD COUNT 4.49 x10^6/uL (4.38-5.82); RED CELL DISTRIBUTION WIDTH 12.8 % (9.4-14.8)
[2020-05-13] MEDS: INSULIN LISPRO 100 UNITS/ML, PEN SQ-INSULIN SCH ×4 (08:36→20:14)
[2020-05-13] MEDS: FAMOTIDINE 20 MG TABLET PO SCH ×2 (08:38→20:12)
[2020-05-13] MEDS: ENOXAPARIN 40 MG/0.4 ML SQ SCH (08:38)
[2020-05-13] MEDS: CIPROFLOXACIN 250 MG TABLET PO SCH ×2 (08:38→20:12)
[2020-05-13] MEDS: SODIUM CHLORIDE 0.9% 1,000 ML IV SCH ×2 (08:38)
[2020-05-13 08:40] VITALS: BP 119/76
[2020-05-13] MEDS: NICOTINE 14MG/24 HR PATCH.TD24 TD SCH (08:48)
[2020-05-13] MEDS ORDERED: INSULIN GLARGINE 100 UNITS/ML, PEN SQ-INSULIN SCH ×3 (09:00→21:00)
[2020-05-13] MEDS ORDERED: TRAZODONE 50MG TABLET PO PRN (10:00)
[2020-05-13 14:33] VITALS: BP 127/83
[2020-05-13 19:01] VITALS: BP 145/89
[2020-05-14 00:26] VITALS: BP 125/73
[2020-05-14 05:34] LABS: ALANINE AMINOTRANSFERASE 29 U/L (12-78); ALBUMIN 3.7 g/dL (3.4-5.0); ANION GAP 6 mmol/L (5-15); CALCIUM 8.7 mg/dL (8.5-10.1); CHLORIDE 102 mmol/L (98-107); CREATININE 0.89 mg/dL (0.7-1.3)
[2020-05-14 05:36] LABS: ALKALINE PHOSPHATASE 69 U/L (45-117); BILIRUBIN,TOTAL 0.9 mg/dL (0.2-1.0); TOTAL PROTEIN 6.3 g/dL (6.4-8.2)
[2020-05-14 07:05] VITALS: BP 115/74
[2020-05-14] MEDS: NICOTINE 14MG/24 HR PATCH.TD24 TD SCH (08:17)
[2020-05-14] MEDS: INSULIN LISPRO 100 UNITS/ML, PEN SQ-INSULIN SCH (08:21)
[2020-05-14] MEDS: CIPROFLOXACIN 250 MG TABLET PO SCH (08:22)
[2020-05-14] MEDS: FAMOTIDINE 20 MG TABLET PO SCH (08:22)
[2020-05-14] MEDS: ENOXAPARIN 40 MG/0.4 ML SQ SCH (08:22)
[2020-05-14] MEDS ORDERED: INSULIN GLARGINE 100 UNITS/ML, PEN SQ-INSULIN SCH ×3 (09:00→21:00)
[2020-05-14] MEDS ORDERED: INSULIN LISPRO 100 UNITS/ML, PEN SQ-INSULIN SCH (11:00)
[2020-05-15] MEDS ORDERED: INSULIN GLARGINE 100 UNITS/ML, PEN SQ-INSULIN SCH (09:00)
== END 2020-05-14 12:12 | disposition left against medical advice (07) | DRG 391 ==
LOC: ED 07:10 → SUATTDRO 08:19 → EDIP 09:06 → 4EST 10:36 → 3N 05-13 17:32
PROVIDERS: ADMIT Internal Medicine; ATTEND Internal Medicine
DX: K52.9 Noninfective gastroenteritis and colitis, unspecified (principal); N17.0 Acute kidney failure with tubular necrosis; E87.1 Hypo-osmolality and hyponatremia; E87.2 Acidosis; F12.90 Cannabis use, unspecified, uncomplicated; F17.200 Nicotine dependence, unspecified, uncomplicated; Z03.818 Encounter for observation for suspected exposure to other biological agents ruled out; Z79.4 Long term (current) use of insulin
CPT/HCPCS: 36415; 71045; 80048; 80053; 80061; 81003; 82010; 82803; 82962; 83036; 83735; 84100; 84443; 85025; 87046; 87324; 87328; 87329; 87427; 87635; 89055; 93005; G0378; J1650; J2405; Q0162; J1815; J7030; J7120